=== PATIENT | female | born 1955 | race Caucasian/White ===

== ENCOUNTER 2019-03-01 13:17 | Inpatient (IN) | payer OTHER ==
[~2019-03-01] VITALS: Ht 162.6 cm; Wt 64.0 kg
[2019-03-01] MEDS ORDERED: MUSCLE SPASM MED PO (13:38)
[2019-03-01] MEDS ORDERED: CAPT25TA3 PO (13:38)
[2019-03-01] MEDS ORDERED: OMEP10 PO (13:38)
[2019-03-01 14:57] LABS: BASOPHILS % (AUTO) 1.4 % (0.0-2.0); HEMATOCRIT 37.7 % (36-46); HEMOGLOBIN 12.8 g/dL (12.0-16.0); LYMPHOCYTES # (AUTO) 2.4 K/uL (1.0-4.8); LYMPHOCYTES % (AUTO) 26.5 % (22.0-44.0); MEAN CORPUSCULAR HEMOGLOBIN 29.8 pg (26.0-34.0); MEAN CORPUSCULAR HGB CONC 33.8 G/dL (31.0-37.0); MEAN CORPUSCULAR VOLUME 88 fL (80-100); MONOCYTES # (AUTO) 0.4 K/uL (0.1-1.0); MONOCYTES % (AUTO) 4.7 % (2.0-9.0); NEUTROPHILS # (AUTO) 5.9 K/uL (1.8-7.7); NEUTROPHILS % (AUTO) 64.4 % (40.0-70.0); PLATELET COUNT (AUTO) 241 K/uL (150-450); RED BLOOD CELL COUNT(AUTO) 4.28 MIL/uL (4.00-5.20); RED CELL DISTRIBUTION WIDTH 12.8 % (11.5-14.5)
[2019-03-01] MEDS ORDERED: IPRATROPIUM BROMIDE 0.5 MG/2.5 ML NEB SOLUTION NEB ONE (15:00)
[2019-03-01] MEDS ORDERED: ALBUTEROL SULFATE 5 MG/ML 20 ML NEB SOLN [BULK] NEB ONE ×2 (15:00→16:45)
[2019-03-01] MEDS ORDERED: ALBUTEROL SULFATE HFA 90 MCG/PUFF 8 GM INHALER IH ONE (15:00)
[2019-03-01] MEDS ORDERED: PredniSONE 20 MG TABLET PO ONE (15:00)
[2019-03-01 15:21] LABS: CALCIUM, TOTAL 10.1 mg/dL (8.8-10.5); CREATININE 1.08 mg/dL (0.60-1.30); POTASSIUM 3.8 mmol/L (3.5-5.1)
[2019-03-01 15:47] LABS: ALBUMIN 4.1 g/dL (3.4-5.0); BILIRUBIN,TOTAL 1.6 mg/dL (0.1-1.0); TOTAL PROTEIN, SERUM 7.9 g/dL (6.4-8.2)
[2019-03-01] MEDS ORDERED: ACETAMINOPHEN 325 MG TABLET PO PRN (20:00)
[2019-03-01] MEDS ORDERED: ALBUTEROL SULFATE 2.5 MG/0.5 ML NEB SOLUTION NEB PRN (20:00)
[2019-03-01] MEDS ORDERED: ONDANSETRON HCL 4 MG/2 ML VIAL IVP PRN (20:00)
[2019-03-01] MEDS ORDERED: 0.9% SODIUM CHLORIDE 10 ML SYRINGE IVP PRN (20:00)
[2019-03-01] MEDS: IPRATROPIUM BROMIDE 0.5 MG/2.5 ML NEB SOLUTION NEB SCH (22:00)
[2019-03-01] MEDS: ALBUTEROL SULFATE 2.5 MG/0.5 ML NEB SOLUTION NEB SCH (22:00)
[2019-03-02] MEDS: ALBUTEROL SULFATE 2.5 MG/0.5 ML NEB SOLUTION NEB SCH ×4 (02:48→20:29)
[2019-03-02] MEDS: IPRATROPIUM BROMIDE 0.5 MG/2.5 ML NEB SOLUTION NEB SCH ×4 (02:48→20:29)
[2019-03-02 04:01] VITALS: BP 115/54
[2019-03-02] MEDS ORDERED: 0.9% SODIUM CHLORIDE 10 ML SYRINGE IVP PRN (07:45)
[2019-03-02] MEDS ORDERED: OxyCODONE HCL/ACETAMINOPHEN 5-325 MG TABLET PO PRN ×2 (07:45)
[2019-03-02] MEDS ORDERED: ONDANSETRON HCL 4 MG/2 ML VIAL IVP PRN (07:45)
[2019-03-02 07:53] VITALS: BP 120/59
[2019-03-02 07:55] LABS: BASOPHILS % (AUTO) 0.1 % (0.0-2.0); EOSINOPHILS % (AUTO) 0 % (1.0-6.0); HEMATOCRIT 32.6 % (36-46); HEMOGLOBIN 11.1 g/dL (12.0-16.0); LYMPHOCYTES # (AUTO) 0.9 K/uL (1.0-4.8); LYMPHOCYTES % (AUTO) 6.2 % (22.0-44.0); MEAN CORPUSCULAR HEMOGLOBIN 29.9 pg (26.0-34.0); MEAN CORPUSCULAR VOLUME 88 fL (80-100); MONOCYTES # (AUTO) 0.7 K/uL (0.1-1.0); MONOCYTES % (AUTO) 4.9 % (2.0-9.0); NEUTROPHILS # (AUTO) 12.8 K/uL (1.8-7.7); PLATELET COUNT (AUTO) 235 K/uL (150-450); RED BLOOD CELL COUNT(AUTO) 3.71 MIL/uL (4.00-5.20); RED CELL DISTRIBUTION WIDTH 13.2 % (11.5-14.5)
[2019-03-02 07:56] LABS: NEUTROPHILS % (AUTO) 88.8 % (40.0-70.0)
[2019-03-02] MEDS ORDERED: MethylPREDNISolone SOD SUCC 125 MG/2 ML VIAL IVP SCH (08:00)
[2019-03-02 08:35] LABS: ALBUMIN 3.6 g/dL (3.4-5.0); BILIRUBIN,TOTAL 0.6 mg/dL (0.1-1.0); CALCIUM, TOTAL 9.6 mg/dL (8.8-10.5); CREATININE 1.14 mg/dL (0.60-1.30); POTASSIUM 4.3 mmol/L (3.5-5.1)
[2019-03-02] MEDS: CAPTOPRIL 25 MG TABLET PO SCH ×2 (08:52→21:08)
[2019-03-02] MEDS ORDERED: FAMOTIDINE 10 MG/ML 2 ML VIAL IVP SCH (09:00)
[2019-03-02] MEDS ORDERED: DOCUSATE SODIUM 100 MG CAPSULE PO SCH (09:00)
[2019-03-02] MEDS ORDERED: ALBUTEROL SULFATE 2.5 MG/0.5 ML NEB SOLUTION NEB PRN (10:45)
[2019-03-02] MEDS ORDERED: DOCUSATE SODIUM 100 MG CAPSULE PO PRN (10:45)
[2019-03-02] MEDS: PANTOPRAZOLE SODIUM 40 MG DR TABLET PO SCH (10:58)
[2019-03-02] MEDS: DOXYCYCLINE HYCLATE 100 MG CAPSULE PO SCH ×2 (11:11→21:08)
[2019-03-02 15:22] VITALS: BP 111/66
[2019-03-02] MEDS ORDERED: MethylPREDNISolone SOD SUCC 40 MG/ML VIAL IVP SCH (16:00)
[2019-03-02] MEDS: MethylPREDNISolone SOD SUCC 40 MG/ML VIAL IVP SCH (16:49)
[2019-03-02 20:14] LABS: INFLUENZA TYPE A NEGATIVE FOR TYPE A (NEGATIVE); INFLUENZA TYPE B NEGATIVE FOR TYPE B (NEGATIVE)
[2019-03-02 20:30] VITALS: BP 124/68
[2019-03-02] MEDS: GuaiFENesin SR 600 MG ER TABLET PO SCH (21:08)
[2019-03-03] VITALS (7 sets, daily range): BP systolic 110–123; BP diastolic 60–79
[2019-03-03] MEDS: ALBUTEROL SULFATE 2.5 MG/0.5 ML NEB SOLUTION NEB SCH ×4 (02:07→20:26)
[2019-03-03] MEDS: IPRATROPIUM BROMIDE 0.5 MG/2.5 ML NEB SOLUTION NEB PRN (02:08)
[2019-03-03 06:05] LABS: BASOPHILS % (AUTO) 0.1 % (0.0-2.0); EOSINOPHILS % (AUTO) 0 % (1.0-6.0); HEMATOCRIT 32.7 % (36-46); HEMOGLOBIN 10.9 g/dL (12.0-16.0); LYMPHOCYTES # (AUTO) 1.5 K/uL (1.0-4.8); LYMPHOCYTES % (AUTO) 5.9 % (22.0-44.0); MEAN CORPUSCULAR HEMOGLOBIN 29.4 pg (26.0-34.0); MEAN CORPUSCULAR HGB CONC 33.3 G/dL (31.0-37.0); MEAN CORPUSCULAR VOLUME 88 fL (80-100); MONOCYTES % (AUTO) 4.2 % (2.0-9.0); NEUTROPHILS # (AUTO) 22.3 K/uL (1.8-7.7); PLATELET COUNT (AUTO) 214 K/uL (150-450); RED BLOOD CELL COUNT(AUTO) 3.71 MIL/uL (4.00-5.20); RED CELL DISTRIBUTION WIDTH 13.2 % (11.5-14.5)
[2019-03-03 06:32] LABS: CALCIUM, TOTAL 9.7 mg/dL (8.8-10.5); CREATININE 1.06 mg/dL (0.60-1.30); POTASSIUM 4.2 mmol/L (3.5-5.1)
[2019-03-03 06:47] LABS: NEUTROPHILS % (AUTO) 89.8 % (40.0-70.0)
[2019-03-03] MEDS: GuaiFENesin SR 600 MG ER TABLET PO SCH ×2 (08:16→20:18)
[2019-03-03] MEDS: CAPTOPRIL 25 MG TABLET PO SCH ×2 (08:16→20:18)
[2019-03-03] MEDS: PANTOPRAZOLE SODIUM 40 MG DR TABLET PO SCH (08:16)
[2019-03-03] MEDS: DOXYCYCLINE HYCLATE 100 MG CAPSULE PO SCH ×2 (08:16→20:18)
[2019-03-03] MEDS: MethylPREDNISolone SOD SUCC 40 MG/ML VIAL IVP SCH (08:16)
[2019-03-03] MEDS: IPRATROPIUM BROMIDE 0.5 MG/2.5 ML NEB SOLUTION NEB SCH ×3 (08:29→20:26)
[2019-03-04] MEDS: ALBUTEROL SULFATE 2.5 MG/0.5 ML NEB SOLUTION NEB SCH ×2 (02:35→08:52)
[2019-03-04] MEDS: IPRATROPIUM BROMIDE 0.5 MG/2.5 ML NEB SOLUTION NEB PRN (02:35)
[2019-03-04 05:20] VITALS: BP 123/87
[2019-03-04 08:01] VITALS: BP 117/68
[2019-03-04 08:09] LABS: BASOPHILS % (AUTO) 0.2 % (0.0-2.0); EOSINOPHILS % (AUTO) 0.8 % (1.0-6.0); HEMATOCRIT 33.2 % (36-46); HEMOGLOBIN 11.3 g/dL (12.0-16.0); LYMPHOCYTES # (AUTO) 3.6 K/uL (1.0-4.8); LYMPHOCYTES % (AUTO) 21.8 % (22.0-44.0); MEAN CORPUSCULAR HEMOGLOBIN 30.4 pg (26.0-34.0); MEAN CORPUSCULAR VOLUME 89 fL (80-100); MONOCYTES % (AUTO) 5.9 % (2.0-9.0); NEUTROPHILS # (AUTO) 11.8 K/uL (1.8-7.7); NEUTROPHILS % (AUTO) 71.3 % (40.0-70.0); PLATELET COUNT (AUTO) 208 K/uL (150-450); RED BLOOD CELL COUNT(AUTO) 3.72 MIL/uL (4.00-5.20); RED CELL DISTRIBUTION WIDTH 13.1 % (11.5-14.5)
[2019-03-04 08:27] LABS: CREATININE 1.09 mg/dL (0.60-1.30); POTASSIUM 3.9 mmol/L (3.5-5.1)
[2019-03-04] MEDS: GuaiFENesin SR 600 MG ER TABLET PO SCH (08:49)
[2019-03-04] MEDS: DOXYCYCLINE HYCLATE 100 MG CAPSULE PO SCH (08:50)
[2019-03-04] MEDS: CAPTOPRIL 25 MG TABLET PO SCH (08:50)
[2019-03-04] MEDS: PANTOPRAZOLE SODIUM 40 MG DR TABLET PO SCH (08:51)
[2019-03-04] MEDS: IPRATROPIUM BROMIDE 0.5 MG/2.5 ML NEB SOLUTION NEB SCH (08:52)
[2019-03-04] MEDS ORDERED: PredniSONE 20 MG TABLET PO SCH (09:00)
[2019-03-04 11:29] VITALS: BP 106/67
[2019-03-04] MEDS ORDERED: DOXY100C PO (11:34)
[2019-03-04] MEDS ORDERED: PRED-284 PO (11:41)
[2019-03-04] MEDS ORDERED: PRED15SO57 PO (11:41)
== END 2019-03-04 15:00 | disposition home or self-care (01) | DRG 140 ==
LOC: EMS 13:18 → 6N 21:00 → 6S 03-02 02:48 → 4E 03-02 12:54
PROVIDERS: ADMIT Internal Medicine; ATTEND Internal Medicine
DX: J44.1 Chronic obstructive pulmonary disease with (acute) exacerbation (principal); F17.210 Nicotine dependence, cigarettes, uncomplicated; I10 Essential (primary) hypertension; K21.9 Gastro-esophageal reflux disease without esophagitis; Z90.710 Acquired absence of both cervix and uterus
CPT/HCPCS: 84145; 87804; 93005; 94640; 94644; 94645; 99291; G0378; J2405; J2920; J2930; J3490; J3535

== ENCOUNTER 2019-06-01 15:32 | Emergency (ER) | payer MEDICARE, OTHER ==
[~2019-06-01] VITALS: Ht 175.3 cm; Wt 81.8 kg
[~2019-06-01 15:32] MED LIST: CAPT25TA3 PO; DOXY100C PO; OMEP10 PO; PRED-284 PO; PRED15SO57 PO
[2019-06-01] MEDS ORDERED: ALBU8HFA IH (15:45)
[2019-06-01] MEDS ORDERED: ACETAMINOPHEN 500 MG TABLET PO ONE (16:00)
[2019-06-01] MEDS ORDERED: ALBUTEROL SULFATE HFA 90 MCG/PUFF 8 GM INHALER IH ONE (16:00)
[2019-06-01] MEDS ORDERED: PredniSONE 20 MG TABLET PO ONE (16:00)
[2019-06-01 19:00] VITALS: BP 133/81
== END 2019-06-01 19:03 | disposition home or self-care (01) ==
LOC: EMS 15:32
DX: J44.9 Chronic obstructive pulmonary disease, unspecified (principal); I10 Essential (primary) hypertension; K21.9 Gastro-esophageal reflux disease without esophagitis; Z87.891 Personal history of nicotine dependence; Z90.710 Acquired absence of both cervix and uterus; Z98.890 Other specified postprocedural states
CPT/HCPCS: 71045; 94640; 99285; J7512; J3535